=== PATIENT | male | born 1995 | race Caucasian/White ===

== ENCOUNTER 2018-01-31 07:13 | Emergency (ER) | payer BC ==
[~2018-01-31] VITALS: Ht 182.9 cm; Wt 100.9 kg
[2018-01-31 07:19] VITALS: Ht 182.9 cm; Wt 100.9 kg
[2018-01-31 10:05] VITALS: BP 137/78
== END 2018-01-31 10:05 | disposition home or self-care (01) ==
LOC: ED 07:13
DX: S62.396A Other fracture of fifth metacarpal bone, right hand, initial encounter for closed fracture (principal); J45.909 Unspecified asthma, uncomplicated; X58.XXXA Exposure to other specified factors, initial encounter; Y93.89 Activity, other specified; Y92.89 Other specified places as the place of occurrence of the external cause; Y99.8 Other external cause status
CPT/HCPCS: 90715